=== PATIENT | female | born 2000 | race Caucasian/White ===

== ENCOUNTER 2018-10-30 12:57 | Emergency (ER) | payer OTHER ==
[2018-10-30 15:00] VITALS: BMI 28.3
[2018-10-30 16:02] LABS: SQUAMOUS EPITHIAL 22 /hpf (0-5); URINE BACTERIA RARE (<OCC); URINE BILIRUBIN NEGATIVE (NEGATIVE); URINE CLARITY CLOUDY (Clear); URINE COLOR YELLOW (YELLOW); URINE GLUCOSE (UA) NEG (NEGATIVE); URINE LEUKOCYTE ESTERASE TRACE Leu/uL (Negative); URINE PROTEIN 30 mg/dL (NEGATIVE); URINE UROBILINOGEN 0.2-1.0 mg/dL (0.2-1.0)
[2018-10-30 16:07] LABS: URINE BLOOD SMALL (NEGATIVE)
--- NOTE | 2018-10-30 16:46 | US ---
Date of service: 10/30/2018 HISTORY: cervical length measurement COMPARISON: None available. TECHNIQUE: Transabdominal and transabdominal ultrasonography of the pelvis has been performed limited to imaging the cervix as per referring physician request. FINDINGS: Internal and external os is of the cervix appeared closed with cervical length measuring 4.3 cm. No mass is seen related to the cervix. There is no definite evidence of placental abruption or previa at the visualized inferior margins of the placenta. cardiac tears recorded 147 beats per minute with lower extremities captured in the inferior margins of the gestational sac. Breech presentation is noted motion and cardiac activity documented. OTHER FINDINGS: None. IMPRESSION: Cervical length measures 4.3 cm as discussed above. cardiac activity is recorded at 147 beats per minute.
[2018-10-31 10:49] VITALS: BP 111/56; PULSE 79; TEMP 97.5; O2SAT 100
--- NOTE | 2018-10-31 15:09 | US ---
Date of service: 10/30/2018 PROCEDURE: Limited obstetrical ultrasound HISTORY: OB scan COMPARISON: None TECHNIQUE: Standard protocol for this study/examination. FINDINGS: Transverse presentation. Fundal/posterior placenta. No evidence of abruption or previa Gestational age derived from LMP 21 weeks 1 day. BETTY 03/11/2019. Gestational age derived from the following biometric parameters 22 weeks. BETTY 03/05/2019 Biparietal diameter 5.3 cm Head circumference 19.5 cm Abdominal circumference 16.0 cm Femur length 3.95 cm Estimated weight 454 g Calculated cardiac rate 150 beats per min. Closed cervix measuring 6.20 cm IMPRESSION: 22 weeks live intrauterine gestation. Gestational concordance documented.
== END 2018-10-30 21:30 | disposition home or self-care (01) ==
LOC: H.EROB2 12:57 → H.L&D 14:06 → H.EROB2 21:30
DX: O26.852 Spotting complicating pregnancy, second trimester (principal); Z3A.16 16 weeks gestation of pregnancy; O26.92 Pregnancy related conditions, unspecified, second trimester; R10.2 Pelvic and perineal pain; R30.0 Dysuria